=== PATIENT | female | born 1950 | race African-American/Black ===

== ENCOUNTER 2020-09-18 15:10 | Outpatient (CLI) | payer MEDICARE | END 2020-09-18 15:11 | disposition home or self-care (01) | LOC: BICMRI 15:10 | PROVIDERS: ATTEND Orthopaedic Surgery | DX: M23.92 Unspecified internal derangement of left knee (principal); M17.0 Bilateral primary osteoarthritis of knee; S83.282A Other tear of lateral meniscus, current injury, left knee, initial encounter; S83.242A Other tear of medial meniscus, current injury, left knee, initial encounter; M67.462 Ganglion, left knee ==

== ENCOUNTER 2020-10-30 06:45 | Day surgery (SDC) | payer MEDICARE ==
[2020-10-28 16:23] VITALS: BMI 34.0
[2020-10-30] MEDS ORDERED: PROPOFOL 20 ML ONE (07:49)
[2020-10-30] MEDS ORDERED: Lidocaine 1% (PF) 30 ML VIAL ONE (08:49)
[2020-10-30] MEDS ORDERED: EPINEPHrine 1 MG/ML AMP ONE (08:49)
[2020-10-30] MEDS ORDERED: Bupivacaine 0.25% HCL 30 ML VIAL ONE (08:49)
[2020-10-30] MEDS ORDERED: Fentanyl 100 MCG/2 ML VIAL ONE (08:50)
[2020-10-30] MEDS ORDERED: Dexamethasone 20 MG/5 ML VIAL ONE (08:58)
[2020-10-30] MEDS ORDERED: Lidocaine 1% PF 5 ML VIAL ONE (08:58)
[2020-10-30] MEDS ORDERED: Ketorolac Tromethamine 30 MG/ML VIAL ONE (08:58)
[2020-10-30] MEDS ORDERED: Ondansetron PF 4 MG/2 ML Vial ONE (08:58)
[2020-10-30] MEDS ORDERED: ePHEDrine 50 MG/ML VIAL ONE (08:58)
[2020-10-30] MEDS ORDERED: Bupivacaine PF 0.5% 30 ML VIAL ONE (08:58)
[2020-10-30] MEDS ORDERED: PROPOFOL 200 MG/20 ML VIAL ONE (08:58)
[2020-10-30] MEDS ORDERED: Lidocaine 2% w/Epinephrine 1:200K 20 ML VIAL ONE (08:58)
[2020-10-30] MEDS ORDERED: methylPREDNISolone Acetate 40 mg/ml Vial ONE (09:33)
== END 2020-10-30 12:06 | disposition home or self-care (01) ==
LOC: SDC 06:45
PROVIDERS: ATTEND Orthopaedic Surgery
PROC: 0SBD4ZZ Excision of Left Knee Joint, Percutaneous Endoscopic Approach (ICD-10-PCS; principal; 2020-10-30)
PROC: 0SBD4ZZ Excision of Left Knee Joint, Percutaneous Endoscopic Approach (ICD-10-PCS; 2020-10-30)
DX: M23.222 Derangement of posterior horn of medial meniscus due to old tear or injury, left knee (principal); M23.362 Other meniscus derangements, other lateral meniscus, left knee; M65.862 Other synovitis and tenosynovitis, left lower leg; M23.8X2 Other internal derangements of left knee; M17.0 Bilateral primary osteoarthritis of knee; I10 Essential (primary) hypertension; E78.00 Pure hypercholesterolemia, unspecified; E66.9 Obesity, unspecified; Z68.34 Body mass index [BMI] 34.0-34.9, adult; Z79.82 Long term (current) use of aspirin; Z79.899 Other long term (current) drug therapy
CPT/HCPCS: J0171; J0690; J1100; J1885; J2001; J2405; J2704; J2920; J3010; J3490; S0020